=== PATIENT | female | born 1980 | race Caucasian/White ===

== ENCOUNTER 2017-06-08 22:24 | Emergency (ER) | payer MEDICAID ==
--- NOTE | 2017-06-08 23:19 | ERNOTE ---
Lower Extremity HPI - General Lower Extremities Pain: leg: right - pain posterior Time Seen by Provider: 06/08/17 23:02 Source: patient Exam Limitations: no limitations - Immun/Allergies/Home Medications Immunizations: IMMUNIZATION HX Immunizations Up to Date Yes History of Influenza Vaccine No Hx Pneumococcal Vaccination No Allergies/Adverse Reactions: Allergies Allergy/AdvReac Type Severity Reaction Status Date / Time codeine Allergy Itching Verified 04/20/15 17:46 naproxen [From Naprosyn] Allergy Other Verified 04/20/15 17:46 Penicillins Allergy Swelling Verified 04/20/15 17:46 (Other) Home Medications: HOME MEDICATIONS ALPRAZolam [Xanax] 0.5 mg PO TID PRN 06/07/13 [Last Taken Unknown] Sertraline HCl [Zoloft] 20 mg PO DAILY 06/07/13 [Last Taken Unknown] Aspirin 325 mg PO DAILY 04/20/15 [Last Taken Unknown] - History of Present Illness Narrative: Pt began to have leg pain with no injury 2 days ago. This continued to worsen and she is concerned because she has had previous DVT. Occurred: other - 2 days ago Method of Injury: Reports: unknown Modifying Factors - (Improves): Reports: rest Modifying Factors - (Worsens): Reports: other - weight bearing Review of Systems - Review of Systems Respiratory: Absent: shortness of breath Cardiology: Absent: chest pain Musculoskeletal: Absent: back pain Skin: Absent: rash Neurological: Absent: numbness, tingling Endocrine: Present: no symptoms reported Hematologic/Lymphatic: Present: other - clotting disorder, hypercoagulable. Absent: easy bruising, easy bleeding - Patient's Past Medical History Patient History - Medical: Anxiety, Migraines, UTI'S Patient History - Cardiac/Respiratory: Deep Vein Thrombosis Patient History - Cancer: No Hx of Cancer Patient History - Surgical Procedures: Patient History - Other: None LMP (females 10-50): last week - Social History Living Situations: home Abuse History: No History of abuse Psych History: No pertinent hx Smoking Status: Former smoker Have you smoked in the past 12 months: No Do you dip or chew tobacco: No Alcohol Use: none Drug Use: none - Immunizations Immunizations Up to Date: Yes Hx Pneumococcal Vaccination: No History of Influenza Vaccine: No Physical Exam - Physical Exam General Appearance: Present: wd/wn, alert, no apparent distress Head Exam: Present: normal inspection, no evidence of injury Respiratory: Present: no respiratory distress, normal breath sounds, no accessory muscle use, lungs clear Cardiovascular/Chest: Present: regular rate, rhythm, no murmur, normal peripheral pulses Extremity Exam: Present: normal range of motion, no edema - calves equal circumference. Right , calf tenderness - right popliteal , other - No ligament laxity to right knee but pt did have tenderness on lochmans test on the right. Neurological Exam: Present: alert, oriented, normal mood/affect Skin Exam: Present: normal color, warm/dry Lymphatic Exam: Present: no adenopathy ED Progress - Results and Orders Patient's Lab Results:: I have reviewed the patient's lab results. Results and Orders: Laboratory Tests 06/08/17 06/08/17 06/08/17 23:17 23:17 23:17 WBC 8.0 Hgb 13.4 Hct 39.1 Plt Count 272 ESR 14 D-Dimer Sodium 142 Potassium 3.6 Chloride 108 H Carbon Dioxide 21.7 L BUN 15 Creatinine 0.95 Random Glucose 94 Calcium 8.6 Total Bilirubin 0.2 AST 11 ALT 15 L Alkaline Phosphatase 93 C-Reactive Prot, Quant Less than 0.2 Total Protein 7.0 Albumin 3.6 06/08/17 23:17 WBC Hgb Hct Plt Count ESR D-Dimer 0.56 H Sodium Potassium Chloride Carbon Dioxide BUN Creatinine Random Glucose Calcium Total Bilirubin AST ALT Alkaline Phosphatase C-Reactive Prot, Quant Total Protein Albumin - Vital Signs Patient's Vital Signs:: I have reviewed the patient's vital signs. Vital Signs: Vital Signs 06/08/17 22:35 Temperature 36.9 C Pulse Rate 84 Respiratory 16 Rate Blood Pressure 117/77 O2 Sat by Pulse 99 Oximetry - CT/Ultrasound CT/Ultrasound Narrative: Venous doppler RLE showed no DVT. - Progress/Reassessment Chief Complaint: Lower Extremity Pain/ Injury Progress Note-Subjective: 06/09/17 01:15 Asked pt about naproxen allergy and if she has been able to take other NSAIDS such as ibuprofen. She states she takes ibuprofen without any problems. Departure Clinical Impression: Right knee sprain Qualifiers: Encounter type: initial encounter Involved ligament of knee: unspecified ligament Qualified Code(s): S83.91XA - Sprain of unspecified site of right knee , initial encounter - Departure Disposition: Home self-care Condition: Good Instructions: Knee Sprain, [id number] Additional Instructions: you may take ibuprofen 600 mg up to 3 times a day for 1-2 weeks. See your primary care provider if not improving. Referrals: Shanelle Gonzalez, [Primary Care Provider] -
[2017-06-08 23:24] LABS: Hematocrit 39.1 % (37.0-47.0); Hemoglobin 13.4 gm/dL (12.5-16.0); Mean Cell Volume 88.1 fl (78-100); Mean Corpuscular Hemoglobin 30.2 pg (27-31); Mean Corpuscular Hgb Conc 34.3 g/dl (32-36); Mean Platelet Volume 8.5 fl (6.0-9.5); Neutrophil # 4.3 K/mm3 (1.3-6.0); Neutrophil % 53.4 % (42-75.0); Platelet Count 272 K/mm3 (150-450); Red Blood Count 4.44 M/mm3 (4.2-5.4); Red Cell Distribution Width 11.8 % (11.5-14.0)
[2017-06-08 23:40] LABS: ALT 15 U/L (19-67); AST 11 U/L (0-48); Albumin * 3.6 gm/dl (3.4-5.0); Alkaline Phosphatase * 93 U/L (50-170); Anion Gap 15.9 mmol/L (6.8-13.8); BUN/Creatinine Ratio 15.8 (9.0-21.6); Bilirubin, Total 0.2 mg/dL (0.0-1.1); Blood Urea Nitrogen 15 mg/dL (3-23); Ca. Corrected For Albumin 8.6 mg/dL (8.4-10.2); Calcium * 8.6 mg/dL (7.9-10.9); Carbon Dioxide 21.7 mmol/L (24-32.6); Chloride 108 mmol/L (97-106); Glucose * 94 mg/dL (70-110); Potassium 3.6 mmol/L (3.4-4.6); Sodium 142 mmol/L (132-142)
[2017-06-09] MEDS ORDERED: NEOMYCIN/GRAMICIDIN/POLYMYXN B 100 DROP BTL EACHEYE ONE (00:07)
[2017-06-09 01:39] VITALS: BP 94/64
== END 2017-06-09 01:35 | disposition home or self-care (01) ==
LOC: ER 22:24
DX: S83.91XA Sprain of unspecified site of right knee, initial encounter (principal); Z86.718 Personal history of other venous thrombosis and embolism